=== PATIENT | male | born 1965 | race Caucasian/White ===

== ENCOUNTER → 2020-09-11 | Outpatient (CLI) | payer MEDICARE ==
[~2020-09-11] MED LIST: DILTIAZEM 12HR60 MG PO; LASIX TAB 20 MG20 MG PO; MONTELUKAST SOD10 MG PO; NORTRIPTYLINE H50 MG PO; OXYCODONE HCL10 MG PO; POTASSIUM CHLO10 MEQ PO; PROAIR DIGIHAL90 MCG PO
[2020-09-11 09:09] LABS: RED BLOOD COUNT 6.04 M/UL (4.20-5.50); WHITE BLOOD COUNT 12.9 K/UL (4.5-11.0)
[2020-09-11 09:34] LABS: BUN/CREATININE RATIO 15 (0-10)
== END ==
LOC: OPSV2 07:55
PROVIDERS: Orthopaedic Surgery
DX: Z01.818 Encounter for other preprocedural examination (principal); M87.059 Idiopathic aseptic necrosis of unspecified femur
CPT/HCPCS: 80048; 81001; 85025; 87081; 93005

== ENCOUNTER → 2020-09-29 | Outpatient (CLI) | payer MEDICARE | LOC: ECHO 09-19 09:00 | DX: R94.31 Abnormal electrocardiogram [ECG] [EKG] (principal) | CPT/HCPCS: ECHO; 93306 ==

== ENCOUNTER → 2021-02-03 | Outpatient (CLI) | payer MEDICARE | LOC: KOH-I 01-27 14:00 | DX: I73.9 Peripheral vascular disease, unspecified (principal) | CPT/HCPCS: 93925 ==

== ENCOUNTER → 2021-05-01 | Outpatient (CLI) | payer MEDICARE ==
[~2021-05-01] MED LIST changes: +LOSARTAN-HCTZ1 EAC1 PO; +TRAZODONE HCL50 MG PO
[2021-05-01 11:02] LABS: HEMOGLOBIN 14.6 gm/dl (14.0-17.5); RED BLOOD COUNT 4.91 M/UL (4.20-5.50); WHITE BLOOD COUNT 10.4 K/UL (4.5-11.0)
[2021-05-01 11:18] LABS: BUN/CREATININE RATIO 20 (0-10)
== END ==
LOC: OPSV2 09:59 → EDSTATUS 10:00 → OPSV2 10:00
PROVIDERS: Orthopaedic Surgery
DX: Z01.818 Encounter for other preprocedural examination (principal); M87.9 Osteonecrosis, unspecified
CPT/HCPCS: 36415; 71046; 80048; 85025